=== PATIENT | female | born 1990 | race Caucasian/White ===

== ENCOUNTER 2021-06-21 11:39 | Day surgery (SDC) | payer SELFPAY ==
[~2021-06-21] VITALS: Ht 175.3 cm; Wt 110.5 kg
[2021-06-21] MEDS ORDERED: NORCO 325 MG-7.1 TAB PO (12:05)
[2021-06-21 12:26] VITALS: BP 155/83; PULSE 90; TEMP 97.2
[2021-06-21 15:19] VITALS: TEMP 98.9
[2021-06-21 15:30] VITALS: BP 142/86; PULSE 79
--- NOTE | 2021-06-21 15:30 | NUR ---
Patient returns to room 1 per cart and is awake and alert. Foot of cart is elevated. Ice on the right knee. Dressing clean and dry on the right knee and ankle. IROM brace on and locked in full extension. Cam walking boot on the right foot. States that the right leg is numb and denies pain. Blocks were placed pre-operatively. IV fluids infusing. Siderails up x2 and call light in reach. Parents in the room. Taking ice tea and denies nausea.
[2021-06-21 15:45] VITALS: BP 147/89; PULSE 80
--- NOTE | 2021-06-21 15:45 | NUR ---
Eating toast and tolerates ice tea.
[2021-06-21 16:00] VITALS: BP 161/88; PULSE 81
--- NOTE | 2021-06-21 16:00 | NUR ---
States that she is needing up to the bathroom. Bedside commode brought to the room. IV discontinued and site is free of redness.
--- NOTE | 2021-06-21 16:10 | NUR ---
Assisted up to the bedside commode with two person assist. Privacy given.
--- NOTE | 2021-06-21 16:20 | NUR ---
Patient assisted with dressing and assisted into wheelchair. Tolerates activity and is non weight bearing on the right leg.
--- NOTE | 2021-06-21 16:30 | NUR ---
Dismissal instructions given and patient voices understanding of these. Parents in the room and also voice understanding.
--- NOTE | 2021-06-21 16:33 | NUR ---
Patient dismissed to home driven by father and assisted into vehicle by this RN with dismissal instructions in hand.
== END 2021-06-21 16:33 | disposition home or self-care (01) ==
LOC: SDCO 11:39
DX: S82.141A Displaced bicondylar fracture of right tibia, initial encounter for closed fracture (principal); S82.51XA Displaced fracture of medial malleolus of right tibia, initial encounter for closed fracture; E66.9 Obesity, unspecified; F17.210 Nicotine dependence, cigarettes, uncomplicated
CPT/HCPCS: C1713; J0690; J1100; J1885; J2250; J2405; J2704; J2795; J3010; J7120; L1832; L4386